=== PATIENT | male | born 1965 | race Caucasian/White ===

== ENCOUNTER → 2016-02-17 | Outpatient (CLI) | payer OTHER ==
[~2016-02-17] MED LIST: GADOBUTROL 10 ML VIAL IVP ONE
--- NOTE | 2016-02-17 15:31 | MR ---
MRI Cervical Spine (Without and With Contrast) History: Multiple sclerosis, G35, fall, worsening left arm and head pain. Comparison: MRI cervical spine from May 2015, outside institution. Technique: Sagittal T1, T2 and axial T1, T2 MR sequences of the cervical spine without contrast. Post contrast sagittal and axial T1-weighted sequences obtained with the uneventful intravenous administra tion of 8 mL Gadavist contrast. Findings: Normal cervical alignment without spondylolisthesis. Cervical vertebral bodies are jose l l height without compression fractures or spondylolisthesis. Cerebellar tonsils are in normal positi on. Cervical spinal cord demonstrates normal signal without cord edema or myelomalacia. C2-C3: No disk herniation or stenosis. C3-C4: No disk herniation or stenosis. C4-C5: Mild degenerative disk disease with small ventral osteophytes. No disk herniation or stenosis. C5-C6: Mild degenerative disk disease with ventral osteophytes. No disk herniation or stenosis. C6-C7: No disk herniation or stenosis. C7-T1: No disk herniation or stenosis. No enhancing lesions, diskitis, or osteomyelitis. Impression: 1. Mild degenerative changes without evidence of disk herniations, central canal stenosis or neural f oraminal stenosis. 2. Normal cervical spinal cord without evidence of cord edema or myelomalacia. 3. No enhancing lesions or evidence of multiple sclerosis.
--- NOTE | 2016-02-17 17:53 | MR ---
MRI of the Brain (Without and With Contrast) at 0719 hours Clinical Indication: G35, multiple sclerosis with worsening left arm and head pain. Comparison: Outside MRI of August 2015. Technique: T1-weighted images were acquired axially and sagittally from the foramen magnum to the ve rtex. Axial fast inversion recovery, fast T2-weighted, and diffusion-weighted axial images were obta ined without contrast. Postcontrast axial, coronal and sagittal T1-weighted images with the uneventfu l intravenous administration of 8 mL Gadavist contrast utilized for the MRI brain and cervical spine. Findings: Throughout the white matter of bilateral cerebral hemispheres, especially bilateral fronta l and parietal lobes, there are multiple nonenhancing hyperintense T2/FLAIR signal abnormalities, whi ch are predominantly periventricular and oriented perpendicular to the long axis of the lateral ventr icles with several lesions involving the corpus callosum all consistent with demyelinating plaques fr om multiple sclerosis. No enhancing lesions. There is suggestion of two possible new right frontal pe riventricular and one right parietal periventricular nonenhancing lesions. The ventricles, cisterns, and sulci are normal without atrophy, hydrocephalus, midline shift, herniat ion, or epidural/subdural hematomas. No intracranial hemorrhage. Diffusion-weighted images demonstrat e no acute infarct. Cerebellar tonsils are in normal position. Pituitary gland is normal in size. Nor mal signal flow-void in the superior sagittal sinus, basilar artery, and bilateral internal carotid a rteries indicating patency. Postcontrast images demonstrate no enhancing lesions or abnormal leptomen ingeal enhancement. Paranasal sinuses and mastoid air cells are clear. Impression: 1. Multiple nonenhancing demyelinating plaques, especially involving bilateral frontal and parietal l obes, consistent with multiple sclerosis with a few possible new right frontal and parietal nonenhanc ing demyelinating plaques. 2. No enhancing demyelinating plaques or enhancing masses. 3. No sinusitis. 4. No acute infarct, acute hemorrhage, hydrocephalus, or herniation.
== END ==
LOC: FIMAGING 06:50
PROVIDERS: ATTEND Physician Assistant Medical
DX: G35 Multiple sclerosis (principal); R51 Headache; M79.602 Pain in left arm
CPT/HCPCS: A9585

== ENCOUNTER → 2017-03-16 | Outpatient (CLI) | payer OTHER | LOC: SBRMNEURO 20:00 | PROVIDERS: ATTEND Psychiatry & Neurology Sleep Medicine | DX: G47.33 Obstructive sleep apnea (adult) (pediatric) (principal); G47.34 Idiopathic sleep related nonobstructive alveolar hypoventilation ==

== ENCOUNTER → 2017-05-12 | Outpatient (CLI) | payer OTHER | LOC: SBRMNEURO 20:00 | PROVIDERS: ATTEND Psychiatry & Neurology Sleep Medicine | DX: G47.33 Obstructive sleep apnea (adult) (pediatric) (principal); G47.34 Idiopathic sleep related nonobstructive alveolar hypoventilation ==